=== PATIENT | male | born 1985 | race African-American/Black ===

== ENCOUNTER 2019-05-06 03:33 | Emergency (ER) | payer OTHER ==
[~2019-05-06] VITALS: Ht 198.1 cm; Wt 103.4 kg
[2019-05-06 03:37] VITALS: BP_SYST 152
[2019-05-06] MEDS ORDERED: DIPH-TET-PERTUS Vaccine 0.5 ML VIAL (ADACEL) I.M. ONE (04:15)
[2019-05-06] MEDS ORDERED: NACL 0.9% 2,000 ML IV ONE (04:15)
[2019-05-06] MEDS ORDERED: LIDOCAINE 1% 10 MG/ML, 20 ML MDV INJ ONE (04:15)
[2019-05-06] MEDS ORDERED: NACL 0.9% 1,000 ML IV ONE (04:45)
[2019-05-06 05:19] VITALS: BP_SYST 132
== END 2019-05-06 05:19 | disposition home or self-care (01) ==
LOC: SED 03:33
DX: S01.511A Laceration without foreign body of lip, initial encounter (principal); V47.5XXA Car driver injured in collision with fixed or stationary object in traffic accident, initial encounter; Y93.89 Activity, other specified; Y92.410 Unspecified street and highway as the place of occurrence of the external cause; Y99.8 Other external cause status
CPT/HCPCS: 12011; 70450; 90471; 90715; 99284; J2001